=== PATIENT | male | born 1970 | race Caucasian/White ===

== ENCOUNTER 2017-11-09 02:31 | Emergency (ER) | payer OTHER ==
[~2017-11-09] VITALS: Ht 170.2 cm; Wt 78.9 kg
[2017-11-09] MEDS ORDERED: SIMVASTATIN20 MG PO (02:52)
[2017-11-09] MEDS ORDERED: CELEBREX100 MG PO (02:52)
[2017-11-09] MEDS ORDERED: LISINOPRIL10 MG PO (02:52)
[2017-11-09] MEDS ORDERED: KETOROLAC TROMETHAMINE 60 MG/2 ML VIAL IM ONE (03:00)
== END 2017-11-09 03:03 | disposition home or self-care (01) ==
LOC: FSED 02:31
DX: M25.562 Pain in left knee (principal); M79.662 Pain in left lower leg
CPT/HCPCS: 99282; J1885